=== PATIENT | female | born 1965 | race American Indian/Alaskan Native ===

== ENCOUNTER 2017-09-18 09:12 | Day surgery (SDC) | payer OTHER ==
[~2017-09-18 09:12] MED LIST: Bupivacaine 0.25% 10 ML SDV INJECT ONE; Bupivacaine 0.25% 10 ML SDV ONE; Lactated Ringers 1,000 ML IV SCH; ceFAZolin 2 GM in Premix Bag 1 BAG IV ONE
[2017-09-18] MEDS ORDERED: Propofol 200 MG/20 ML SDV ONE (13:05)
[2017-09-18] MEDS ORDERED: Ondansetron 4 MG/2 ML SDV ONE (13:05)
[2017-09-18] MEDS ORDERED: Lidocaine 2% 5 ML SDV ONE (13:05)
[2017-09-18] MEDS ORDERED: fentaNYL 100 MCG/2 ML SDV ONE (13:05)
[2017-09-18] MEDS ORDERED: Midazolam 1 MG/ML 2 ML SDV ONE (13:05)
--- NOTE | 2017-09-18 13:19 | PCM.PREANE ---
Preanesthetic Assessment - Anesthesia/Transfusion/Family Hx Anesthesia History: Prior Anesthesia Without Reaction Transfusion History: No Prior Transfusion(s) - Review of Systems General: No Symptoms Pulmonary: No Symptoms Cardiovascular: No Symptoms Gastrointestinal: No Symptoms Neurological: No Symptoms Other: Reports: None - Physical Assessment NPO Status Date: 09/17/17 NPO Status Time: 22:00 O2 Sat by Pulse Oximetry: 100 Respiratory Rate: 16 Vital Signs: Last Vital Signs Temp 97.9 F 09/18/17 09:15 Pulse 67 09/18/17 09:15 Resp 16 09/18/17 09:15 BP 123/80 09/18/17 09:15 Pulse Ox 100 09/18/17 09:15 Height: 5 ft 3 in Weight: 67.585 kg Mental Status: Alert & Oriented x3 Dentition: Reports: Normal Dentition ROM/Head Extension: Full Lungs: Clear to Auscultation, Normal Respiratory Effort Cardiovascular: Regular Rate, Regular Rhythm - Lab Values: Laboratory Last Values Urine HCG, Qual NEGATIVE (NEGATIVE) 09/18/17 09:16 - Allergies Allergies/Adverse Reactions: Allergies Allergy/AdvReac Type Severity Reaction Status Date / Time latex Allergy Rash Verified 09/16/17 11:02 - Acknowledgements Anesthesia Type Planned: General Anesthesia Pt an Appropriate Candidate for the Planned Anesthesia: Yes Alternatives and Risks of Anesthesia Discussed w Pt/Guardian: Yes Pt/Guardian Understands and Agrees with Anesthesia Plan: Yes PreAnesthesia Questionnaire Other HEENT History: wears glasses Cardiovascular History: Reports: None Respiratory History: Reports: None Gastrointestinal History: Reports: None Genitourinary History: Reports: None 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 Musculoskeletal History: Reports: Fracture Other Musculoskeletal History: hx of fx ankle Neurological History: Reports: Other (See Below) Other Neuro History: hx of motion sickness Psychiatric History: Reports: None Endocrine/Metabolic History: Reports: None Hematologic History: Reports: None Immunologic History: Reports: None Oncologic (Cancer) History: Reports: Malignant Melanoma Dermatologic History: Reports: Eczema - Past Surgical History GI Surgical History: Reports: Appendectomy Female Surgical History: Reports: Tubal Ligation - SUBSTANCE USE Smoking Status *Q: Never Smoker Recreational Drug Use History: No - HOME MEDS Home Medications: Home Meds . [No Known Home Meds] 09/16/17 [History] - CURRENT (IN HOUSE) MEDS Current Meds: Current Medications Lactated Ringer's (Ringers, Lactated) 1,000 mls @ 125 mls/hr IV ASDIRECTED ELZBIETA Last Admin: 09/18/17 09:49 Dose: 125 mls/hr Discontinued Medications Bupivacaine HCl (Sensorcaine-Mpf 0.25%) 20 ml INJECT ONETIME ONE Stop: 09/18/17 09:01 Bupivacaine HCl (Sensorcaine-Mpf 0.25%) Confirm Administered Dose 10 ml .ROUTE .STK-MED ONE Stop: 09/18/17 07:18 Bupivacaine HCl (Sensorcaine-Mpf 0.25%) Confirm Administered Dose 10 ml .ROUTE .STK-MED ONE Stop: 09/18/17 07:19 Fentanyl (Sublimaze) Confirm Administered Dose 200 mcg .ROUTE .STK-MED ONE Stop: 09/18/17 13:06 Cefazolin Sodium/Dextrose 2 gm (/ Premix) 50 mls @ 100 mls/hr IV ONETIME ONE Stop: 09/18/17 09:29 Lidocaine (Xylocaine-Mpf 2%) Confirm Administered Dose 5 ml .ROUTE .STK-MED ONE Stop: 09/18/17 13:06 Midazolam HCl (Versed 1 Mg/Ml) Confirm Administered Dose 2 mg .ROUTE .STK-MED ONE Stop: 09/18/17 13:06 Ondansetron HCl (Zofran) Confirm Administered Dose 4 mg .ROUTE .STK-MED ONE Stop: 09/18/17 13:06 Propofol (Diprivan 20 Ml) Confirm Administered Dose 200 mg .ROUTE .STK-MED ONE Stop: 09/18/17 13:06
--- NOTE | 2017-09-18 13:34 | NM ---
EXAMINATION: Lymphoscintigraphy HISTORY: Melanoma COMPARISON: None TECHNIQUE: Planar images were obtained over the thorax and abdomen following the administration of 6 intradermal injections surrounding the right flank melanoma site. A total of 0.5 mCi of technetium 99 M labeled sulfur coli views. FINDINGS: There is an inferior tract noted from the injection site of the right lower abdomen extendi ng towards the right groin. A small focus-present itself within the right inguinal region. There is p ossibly an additional tract beginning to show late within the study heading superiorly. IMPRESSION: Central node is noted within the right inguinal region.
[2017-09-18] MEDS ORDERED: ceFAZolin 1 GM Vial ONE (13:36)
[2017-09-18] MEDS ORDERED: Sodium Chloride 0.9% 20 ML ONE (13:36)
[2017-09-18] MEDS ORDERED: ePHEDrine 50 MG/ML SDV ONE (13:45)
--- NOTE | 2017-09-18 14:51 | PCM.POSTAN ---
POST ANESTHESIA ASSESSMENT - RESPIRATORY Respiratory Status: Respiratory Rate WNL, Airway Patent, O2 Saturation Stable - CARDIOVASCULAR CV Status: Pulse Rate WNL, Blood Pressure Stable - GASTROINTESTINAL GI Status: No Symptoms - PAIN Pain Score: 0 - POST OP HYDRATION Hydration Status: Adequate & Stable (vital signs stable. awake and alert)
--- NOTE | 2017-09-22 17:02 | PCM.OPNOTE ---
- General Post-Op/Procedure Note Date of Surgery/Procedure: 09/18/17 Operative Procedure(s): excision of right lower abdomen mealnoma with 2cm margin - total excison of 5 cm with intermediate 5cm repair and sentinel lymph node biopsy. Pre Op Diagnosis: melanoma 1.03mm right lower abdomen. Post-Op Diagnosis: Same Anesthesia Technique: General LMA, Local Primary Surgeon: Mckenzie Kidd Level Vial Curvature Gauger: Dahlia Macias Complications: None Condition: Good Free Text/Narrative:: [id number]
--- NOTE | 2017-09-22 21:08 | OR ---
SURGEON: ELENITA JOINER MD DATE OF PROCEDURE: 09/18/2017 PREOPERATIVE DIAGNOSIS: Melanoma of right lower abdomen with a depth of Breslow thickness of 1.02 mm. POSTOPERATIVE DIAGNOSIS: Melanoma of right lower abdomen with a depth of Breslow thickness of 1.02 mm. PROCEDURE: Excision of right lower abdomen melanoma with 2 cm margin and total excision of 5 cm with intermediate 5 cm repair and sentinel lymph node biopsy. MORTGAGE OPERATIONS MANAGER: CELENA Preez. INDICATIONS: Ms. Claros is a 51-year-old female with a right lower abdominal melanoma. The pathology shows a Breslow's depth of 1.02 mm which is usually a 1-2cm margin but unfortunately this was a shave biopsy making the depth somewhat unreliable. It has a closed margin and given the excess skin risks and benefits of excision with a 2 cm margin were discussed. We will proceed with this. Because it is technically greater than 1mm depth, I would recommend a sentinel lymph node biopsy per standard guidelines. Risks and benefits of this were discussed with her and she was in agreement to proceed. Risks were including, but not limited to, bleeding, infection, damage to underlying or overlying structures, possible need for future interventions, and possible scarring. In addition, she has many other moles and has been referred to Dermatology for evaluation of this. PROCEDURE IN DETAIL: After informed consent was obtained and placed on the chart, the patient was brought to the operating theater and laid in supine position. She has been to Radiology previously for injection and imaging of the sentinel node to the right groin. Once adequately prepped and draped, a time-out was completed to confirm side and site, and the area was prepped and draped in normal fashion. Local anesthesia was injected into the area and the sentinel lymph node was removed first. The Lien Enforcement counter was used to localize the sentinel noted and dissection was carried through the skin and subcutaneous tissues using a 15 blade and spreading dissection with a Littler scissor. The sentinel node was easily located and cauterized at its proximal and distal ends for meticulous hemostasis and to prevent lymphatic drainage. Once adequately excised, the levels were appreciated to be at 10% of the original lesion thus qualifying for an adequate sentinel node. This was sent for pathology in formalin. This wound was then closed with deep Monocryl stitches and a running subcuticular for the skin. It was dressed with Steri-Strips. Attention was then paid to the right lower abdomen. There was a large, dark mole superior to the previous excision and thus the ellipse was designed to accomplish excision of this as well and was sent for pathology with the original specimen as outlined with the pathologist. The right lower abdominal melanoma as mentioned was marked with 2 cm margin and excised for a total length of 5 cm, and the wound was closed in an intermediate fashion for a total length of 5 cm using deep Monocryl stitches and a running 4- 0 subcuticular for the skin. It was dressed with Steri-Strips and a Tegaderm border. The patient tolerated this well. All counts and needles were correct at the end of the case. FOLLOWUP INSTRUCTIONS: The patient will see us in clinic in approximately 10 days or sooner if any problems, questions, or concerns. She was given a prescription for pain control and will call with any issues. HECLEMENTINE / ALLY /[id number] KATHRYN
== END 2017-09-18 15:45 | disposition home or self-care (01) ==
LOC: MW.SDS 09:12
PROVIDERS: ATTEND Plastic Surgery
DX: C43.59 Malignant melanoma of other part of trunk (principal); Z91.040 Latex allergy status
CPT/HCPCS: 11406; 12032; 38500; 78195; 81025; A9541; J0690; J2250; J2405; J3010; J7120; 00840; 88305; J2704

== ENCOUNTER 2022-06-02 21:24 | Emergency (ER) | payer OTHER ==
[2022-06-02] MEDS ORDERED: diphenhydrAMINE 50 MG Cap PO ONE (23:27)
[2022-06-02] MEDS ORDERED: Doxycycline 100 MG Cap PO ONE (23:27)
[2022-06-02] MEDS ORDERED: predniSONE 10 MG Tab PO ONE (23:27)
== END 2022-06-03 00:50 | disposition home or self-care (01) ==
LOC: MW.ED 21:24
DX: T78.40XA Allergy, unspecified, initial encounter (principal); L03.90 Cellulitis, unspecified; Z91.040 Latex allergy status
CPT/HCPCS: 99283; A9270